=== PATIENT | male | born 1995 | race African-American/Black ===

== ENCOUNTER 2016-11-25 23:24 | Emergency (ER) | payer OTHER ==
[~2016-11-25] VITALS: Ht 175.3 cm; Wt 83.5 kg
[2016-11-26] MEDS ORDERED: diphenhydrAMINE INJ 50MG/ML VIAL (J1200) IV ONE
[2016-11-26] MEDS ORDERED: methylPREDNISolone INJ 125 MG/2 ML VIAL (J2930) IV ONE
[2016-11-26] MEDS ORDERED: FAMOTIDINE IV BAG 20 MG in APPROPRIATE DILUENT 1 EA IV ONE ×2
[2016-11-26] MEDS ORDERED: EPIP0.3I2 IJ (04:50)
[2016-11-26 05:03] VITALS: BP 133/74
== END 2016-11-26 05:06 | disposition home or self-care (01) ==
LOC: EDBD 23:24 → EDSEX 23:24 → M ED 11-26 01:10
DX: T78.3XXA Angioneurotic edema, initial encounter (principal); T78.02XA Anaphylactic reaction due to shellfish (crustaceans), initial encounter; Y92.9 Unspecified place or not applicable; Y93.9 Activity, unspecified; Z91.013 Allergy to seafood
CPT/HCPCS: 93041; 94760; 96374; 96375; 99285; J1200; J2930

== ENCOUNTER 2018-01-03 00:31 | Emergency (ER) | payer OTHER ==
[2018-01-03] MEDS: TETRACAINE 0.5% OPHTH SOLN 4ML OU (02:15)
[2018-01-03] MEDS: dexameTHASONE 20 MG/5 ML VIAL (J1100) IV (02:21)
[2018-01-03] MEDS: IPRATROPIUM 0.5MG/ALBUTEROL 2.5MG INH SOL UD 3ML (DUONEB)(J7620) NEB (02:29)
[2018-01-03] MEDS: prednisoLONE ACET 1% OPHTH SUSP 5ML OU (02:56)
== END 2018-01-03 05:50 | disposition home or self-care (01) ==
LOC: M ED 00:31
DX: T54.91XA Toxic effect of unspecified corrosive substance, accidental (unintentional), initial encounter (principal); T65.891A Toxic effect of other specified substances, accidental (unintentional), initial encounter; H57.8 Other specified disorders of eye and adnexa; J02.9 Acute pharyngitis, unspecified
CPT/HCPCS: J1100